=== PATIENT | male | born 1955 | race Caucasian/White ===

== ENCOUNTER 2018-04-12 08:43 | Outpatient (CLI) | payer OTHER ==
--- NOTE | 2018-04-12 11:00 | XRAY Report ---
TWO VIEW CHEST: 04/12/2018 CLINICAL INDICATION: Cough, nicotine dependence. COMPARISON: 01/31/2015 FINDINGS: Frontal and lateral views of the chest demonstrate a normal cardiac silhouette. Mild interstitial prominence is unchanged. No new infiltrate, effusion, or pneumothorax is present. IMPRESSION: STABLE MILD INTERSTITIAL DISEASE. NO EVIDENCE OF ACUTE CARDIOPULMONARY DISEASE. TD: 04/12/2018 10:45
== END 2018-04-12 08:44 | disposition home or self-care (01) ==
LOC: DI.N 08:43
PROVIDERS: ATTEND Internal Medicine
DX: R05 Cough (principal); F17.210 Nicotine dependence, cigarettes, uncomplicated
CPT/HCPCS: 71046

== ENCOUNTER 2018-12-05 13:25 | Outpatient (CLI) | payer OTHER ==
--- NOTE | 2018-12-06 01:31 | XRAY Report ---
Reason: LOW BACK PAIN Procedure Date: 12/05/2018 Accession Number: [id number] / [id number] Procedure: XRN - Lumbar Spine 2 View CPT Code: FULL RESULT: EXAM: LUMBOSACRAL SPINE RADIOGRAPHY EXAM DATE: 12/05/2018 01:39 PM. CLINICAL HISTORY: LOW BACK PAIN. COMPARISONS: None. TECHNIQUE: 3 views. FINDINGS: Alignment: Mild degenerative levoscoliosis. Reversal of the normal lumbar lordosis. Bones: Five tmk-xbi-zybpicn lumbar vertebral bodies are present. No fractures or bone lesions. Disks: Moderate degenerative disk disease. Facets: Moderate facet arthropathy. Sacroiliac Joints: Unremarkable. Soft Tissues: Normal. The visualized bowel gas pattern is normal. IMPRESSION: Moderate degenerative changes. No evidence of acute fracture. RADIA
== END 2018-12-05 13:26 | disposition home or self-care (01) ==
LOC: DI.N 13:25
PROVIDERS: ATTEND Internal Medicine
DX: M51.36 Other intervertebral disc degeneration, lumbar region (principal); M41.86 Other forms of scoliosis, lumbar region
CPT/HCPCS: 72100

== ENCOUNTER 2019-03-27 09:27 | Outpatient (CLI) | payer OTHER ==
--- NOTE | 2019-03-27 14:54 | MRI Report ---
Reason: LOW BACK PAIN Procedure Date: 03/27/2019 Accession Number: [id number] / [id number] Procedure: MRI - Lumbar Spine W/O CPT Code: FULL RESULT: EXAM: MRI LUMBAR SPINE WITHOUT CONTRAST EXAM DATE: 03/27/2019 10:16 AM. CLINICAL HISTORY: Low back pain. Previous injury 6 months ago. COMPARISON: Lumbar spine radiography from 11/25/2018. TECHNIQUE: Multiplanar, multisequence T1-weighted and fluid-sensitive sequences of the lumbar spine from T12 to S1 without contrast. Other: None. FINDINGS: Spinal Canal: The conus terminates at L1-L2. The conus medullaris and cauda equina are unremarkable. Alignment: Grade 1 retrolisthesis at L5-S1 by approximately 7 mm. Grade 1 retrolisthesis at L2-L3 by approximately 2 mm. Bone Marrow: Five yck-hgi-jywwnza lumbar vertebral bodies are assumed. Anterior and lateral osteophytes at multiple levels. Schmorl's nodes at multiple vertebral body endplates. No acute fracture or bone lesions. Disk Levels/Facets: L5-S1: Severe disk space narrowing. Minimal disk bulge. Mild facet arthropathy. Moderate to severe left and mild to moderate right foraminal stenoses. L4-L5: Small left and right lateral disk bulges. There is an approximately 1.7 cm superior to inferior by 1.5 cm medial to lateral by 1.1 cm AP, large synovial cyst arising from the anteromedial aspect of the right facet joint and compressing the right lateral aspect of the thecal sac. As result, there is moderately severe canal and severe right subarticular zone stenoses. Moderate left and moderate to severe right facet arthropathy. Small to moderate sized left and moderate sized right facet joint effusions. Mild to moderate foraminal stenoses. L3-L4: Small disk bulge. Mild facet arthropathy. Mild canal and foraminal stenosis. L2-L3: Small disk bulge. Mild facet arthropathy. Mild foraminal stenoses. L1-L2: Minimal disk bulge. Mild facet arthropathy. No stenoses. T12-L1: Mild to moderate facet arthropathy. No stenoses. Musculature: Normal. No edema or fatty atrophy. Other: The partially visualized retroperitoneum is unremarkable. IMPRESSION: 1. Multilevel degenerative disk changes, osteophytosis, and facet arthropathy. The most significant level is at L4-L5. 2. Small left and right lateral disk bulges at L4-L5. The and facet joint effusions. There is a large, 1.7 x 1.5 x 1.1 cm synovial cyst arising from the right facet joint which compresses the thecal sac and causes moderately severe canal and severe right subarticular zone stenoses. Mild to moderate foraminal stenoses. 3. Severe disk space narrowing at L5-S1. Moderate to severe left and mild to moderate right foraminal stenoses. 4. Grade 1 retrolisthesis at L5-S1 and L2-L3. Comment: The following findings are so common in adults without low back pain that while we report their presence, they must be interpreted with caution and in the context of the clinical situation. (Reference Humzavik et al, Spine 2001) Prevalence of findings in patients without low back pain: Disk degeneration (any evidence): 92% Disk desiccation/T2 signal loss: 83% Disk height loss: 56% Disk bulge: 64% Disk protrusion: 32% Annular tear/high intensity zone: 38% RADIA
== END 2019-03-27 09:28 | disposition home or self-care (01) ==
LOC: DI 09:27
PROVIDERS: ATTEND Internal Medicine
DX: M51.36 Other intervertebral disc degeneration, lumbar region (principal); M48.061 Spinal stenosis, lumbar region without neurogenic claudication; M47.9 Spondylosis, unspecified; M43.16 Spondylolisthesis, lumbar region; M71.38 Other bursal cyst, other site
CPT/HCPCS: 72148

== ENCOUNTER 2019-06-06 11:42 | Outpatient (CLI) | payer MEDICARE ==
--- NOTE | 2019-06-06 14:52 | XRAY Report ---
Reason: HTN, COPD Procedure Date: 06/06/2019 Accession Number: [id number] / [id number] Procedure: XRN - Chest 2 View X-Ray CPT Code: 38140 FULL RESULT: EXAM: CHEST RADIOGRAPHY EXAM DATE: 06/06/2019 11:54 AM. CLINICAL HISTORY: Hypertension, COPD. COMPARISON: CHEST 2 VIEW 04/12/2018 8:57 AM. TECHNIQUE: 2 views. FINDINGS: Lungs/Pleura: No focal opacities evident. No pleural effusion. No pneumothorax. Normal volumes. Mediastinum: Heart and mediastinal contours are stable with mild tortuosity of the aorta and no cardiac enlargement. Other: None. IMPRESSION: Radiographically, no enlargement of the pulmonary volume and no flattening of diaphragms. No acute cardiopulmonary abnormality. RADIA
== END 2019-06-06 11:43 | disposition home or self-care (01) ==
LOC: DI.N 11:42
PROVIDERS: ATTEND Internal Medicine
DX: J44.9 Chronic obstructive pulmonary disease, unspecified (principal); I10 Essential (primary) hypertension
CPT/HCPCS: 71046

== ENCOUNTER 2023-06-14 07:57 | Outpatient (CLI) | payer MEDICARE ==
--- NOTE | 2023-06-14 13:32 | Ultrasound Report ---
PROCEDURE: Abdomen Complete INDICATIONS: ABN LFTS TECHNIQUE: Real-time scanning was performed of the abdominal and retroperitoneal organs, with image documentatio n. COMPARISON: Ultrasound abdomen 06/29/2020 FINDINGS: Liver: Increased liver echogenicity, commonly hepatic steatosis. Gallbladder: Unremarkable. Biliary ducts: Intrahepatic bile ducts are non-dilated. Extrahepatic bile duct caliber measures 3.3 mm. Normal is 6-7 mm or less in diameter, or 10 mm or less post-cholecystectomy. Pancreas: Visualized portions of the pancreas are sonographically normal. The pancreatic tail is not seen secondary overlying bowel gas. Spleen: Spleen is normal in size and homogeneous in echotexture. Kidneys: Kidneys are normal in size and echotexture. Right kidney measures 12.7 cm long; left kidne y measures 12.9 cm long. No hydronephrosis or nephrolithiasis. No solid masses. No complex renal cy stic lesions which require follow-up. There is a 1.6 cm simple cyst within the inferior pole the left kidney. Aorta: Visualized aorta is normal in caliber at less than 3 cm. Atherosclerotic calcifications thro ughout the aorta. Iliacs: Proximal common iliac arteries are normal in caliber at less than 2.5 cm. IVC: Intrahepatic inferior vena cava is patent. Miscellaneous: No free abdominal fluid. IMPRESSION: 1.Increased hepatic echogenicity is noted, possibly related to the hepatic steatosis but other source s of hepatocellular disease cannot be excluded. Recommend clinical correlation. 2.Atherosclerosis of the abdominal aorta which is normal in caliber. Reviewed by: Diaz Perkins MD on 06/14/2023 9:55 AM PDT Approved by: Diaz Perkins MD on 06/14/2023 9:55 AM PDT Station ID: [id number]
== END 2023-06-14 07:58 | disposition home or self-care (01) ==
LOC: DI 07:57
PROVIDERS: ATTEND Internal Medicine
DX: R74.01 Elevation of levels of liver transaminase levels (principal); I70.0 Atherosclerosis of aorta

== ENCOUNTER 2023-08-31 08:57 | Outpatient (CLI) | payer MEDICARE ==
--- NOTE | 2023-08-31 09:38 | XRAY Report ---
PROCEDURE: Lumbar Spine 2 View INDICATIONS: SPINE TECHNIQUE: 6 views of the lumbar spine were acquired. COMPARISON: None. FINDINGS: Bones: 5 bgm-[id number]-[id number] vertebrae are present. There is normal bony alignment. No vertebral body compression fractures. No suspicious bony lesions. Posterior surgical fusion L4-S1. Interbody fusio n L4-5 and L5-S1. Moderate disc height loss at remaining levels. Grade 1 retrolisthesis of L3 on L4 a nd L2 on L3, stable with flexion and extension. Soft tissues: Overlying bowel gas pattern is normal. No suspicious soft tissue calcifications. IMPRESSION: Posterior and interbody surgical fusion of the lumbosacral spine, without hardware convocation. Moderate degenerative disc disease otherwise. Reviewed by: William Marquez on 08/31/2023 9:36 AM PDT Approved by: William Marquez on 08/31/2023 9:36 AM PDT Station ID: [id number]
== END 2023-08-31 08:58 | disposition home or self-care (01) ==
LOC: DI 08:57
PROVIDERS: ATTEND Physician Assistant
DX: M51.36 Other intervertebral disc degeneration, lumbar region (principal); Z98.1 Arthrodesis status

== ENCOUNTER 2023-10-04 12:49 | Outpatient (CLI) | payer MEDICARE | END 2023-10-04 12:50 | disposition home or self-care (01) | LOC: CAM 12:49 | PROVIDERS: ATTEND Internal Medicine | DX: M54.42 Lumbago with sciatica, left side (principal); M54.41 Lumbago with sciatica, right side | CPT/HCPCS: 97813; 97814 ==

== ENCOUNTER 2023-10-11 12:43 | Outpatient (CLI) | payer MEDICARE | END 2023-10-11 12:44 | disposition home or self-care (01) | LOC: CAM 12:43 | PROVIDERS: ATTEND Internal Medicine | DX: M54.42 Lumbago with sciatica, left side (principal); M54.41 Lumbago with sciatica, right side | CPT/HCPCS: 97813; 97814 ==

== ENCOUNTER 2024-01-31 14:18 | Outpatient (CLI) | payer MEDICARE | END 2024-01-31 14:19 | disposition home or self-care (01) | LOC: CAM 14:18 | PROVIDERS: ATTEND Internal Medicine | DX: G89.29 Other chronic pain (principal); M54.41 Lumbago with sciatica, right side; M54.42 Lumbago with sciatica, left side | CPT/HCPCS: 97813; 97814 ==

== ENCOUNTER 2024-02-07 14:20 | Outpatient (CLI) | payer MEDICARE | END 2024-02-07 14:21 | disposition home or self-care (01) | LOC: CAM 14:20 | PROVIDERS: ATTEND Internal Medicine | DX: M54.42 Lumbago with sciatica, left side (principal); M54.41 Lumbago with sciatica, right side; G89.29 Other chronic pain | CPT/HCPCS: 97813; 97814 ==

== ENCOUNTER 2024-02-14 14:27 | Outpatient (CLI) | payer MEDICARE | END 2024-02-14 14:28 | disposition home or self-care (01) | LOC: CAM 14:27 | PROVIDERS: ATTEND Internal Medicine | DX: M54.42 Lumbago with sciatica, left side (principal); M54.41 Lumbago with sciatica, right side; G89.29 Other chronic pain | CPT/HCPCS: 97813; 97814 ==

== ENCOUNTER 2024-02-21 14:13 | Outpatient (CLI) | payer MEDICARE | END 2024-02-21 14:14 | disposition home or self-care (01) | LOC: CAM 14:13 | PROVIDERS: ATTEND Internal Medicine | DX: M54.42 Lumbago with sciatica, left side (principal); M54.41 Lumbago with sciatica, right side; G89.29 Other chronic pain | CPT/HCPCS: 97813; 97814 ==

== ENCOUNTER 2024-07-03 14:17 | Outpatient (CLI) | payer MEDICARE | END 2024-07-03 14:18 | disposition home or self-care (01) | LOC: CAM 14:17 | PROVIDERS: ATTEND Internal Medicine | DX: M54.41 Lumbago with sciatica, right side (principal); M54.42 Lumbago with sciatica, left side; G89.29 Other chronic pain | CPT/HCPCS: 97813; 97814 ==

== ENCOUNTER 2024-07-10 13:04 | Outpatient (CLI) | payer MEDICARE | END 2024-07-10 13:05 | disposition home or self-care (01) | LOC: CAM 13:04 | PROVIDERS: ATTEND Internal Medicine | DX: M54.41 Lumbago with sciatica, right side (principal); M54.42 Lumbago with sciatica, left side; G89.29 Other chronic pain | CPT/HCPCS: 97813; 97814 ==

== ENCOUNTER 2024-07-31 13:09 | Outpatient (CLI) | payer MEDICARE | END 2024-07-31 13:10 | disposition home or self-care (01) | LOC: CAM 13:09 | PROVIDERS: ATTEND Internal Medicine | DX: M54.41 Lumbago with sciatica, right side (principal); M54.42 Lumbago with sciatica, left side | CPT/HCPCS: 97813; 97814 ==

== ENCOUNTER 2024-08-07 13:10 | Outpatient (CLI) | payer MEDICARE | END 2024-08-07 13:11 | disposition home or self-care (01) | LOC: CAM 13:10 | PROVIDERS: ATTEND Internal Medicine | DX: M54.41 Lumbago with sciatica, right side (principal); M54.42 Lumbago with sciatica, left side | CPT/HCPCS: 97813; 97814 ==